=== PATIENT | female | born 1950 ===

== ENCOUNTER → 2023-02-05 | Outpatient (CLI) | payer MEDICARE, OTHER ==
[~2023-02-05] VITALS: Ht 157.5 cm; Wt 60.4 kg
[~2023-02-05] MED LIST: CETI-450 PO; FLUT16SP NASAL; PANT-31 PO; TELM40 PO
[2023-02-05 09:19] VITALS: BP 122/71; PULSE 88; RESP 15; TEMP 98.8; O2SAT 97
== END | disposition home or self-care (01) ==
LOC: SRCNTR 09:03
PROVIDERS: ATTEND Internal Medicine
DX: R05.3 Chronic cough (principal); K21.9 Gastro-esophageal reflux disease without esophagitis; Z87.898 Personal history of other specified conditions; Z79.899 Other long term (current) drug therapy
CPT/HCPCS: G0463; Z7500

== ENCOUNTER → 2023-04-23 | Outpatient (CLI) | payer MEDICARE, OTHER ==
[~2023-04-23] VITALS: Ht 157.5 cm; Wt 62.0 kg
[2023-04-23 08:58] VITALS: BP 128/74; PULSE 82; RESP 17; TEMP 97.8; O2SAT 98
== END | disposition home or self-care (01) ==
LOC: SRCNTR 08:46
PROVIDERS: ATTEND Internal Medicine
DX: R05.3 Chronic cough (principal); K21.9 Gastro-esophageal reflux disease without esophagitis; Z98.890 Other specified postprocedural states
CPT/HCPCS: G0463; Z7500

== ENCOUNTER → 2024-11-03 | Outpatient (CLI) | payer MEDICARE, OTHER ==
[~2024-11-03] VITALS: Ht 157.5 cm; Wt 61.0 kg
[2024-11-03 10:31] VITALS: BP 124/62; PULSE 88; RESP 20; TEMP 98; O2SAT 97
== END | disposition home or self-care (01) ==
LOC: SRCNTR 10:03
PROVIDERS: ATTEND Internal Medicine
DX: Z09 Encounter for follow-up examination after completed treatment for conditions other than malignant neoplasm (principal); R05.3 Chronic cough; J45.909 Unspecified asthma, uncomplicated; K21.9 Gastro-esophageal reflux disease without esophagitis; R09.82 Postnasal drip
CPT/HCPCS: G0463; Z7500